=== PATIENT | female | born 1970 | race Caucasian/White ===

== ENCOUNTER 2022-11-06 14:16 | Outpatient (CLI) | payer OTHER, SELFPAY | END 2022-11-06 14:17 | disposition home or self-care (01) | PROVIDERS: PCP Physician Assistant Medical; Referring Provider Physician Assistant Medical; Visit Provider Physician Assistant Medical | DX: Z01.818 Encounter for other preprocedural examination (principal); Z00.00 Encounter for general adult medical examination without abnormal findings; D64.9 Anemia, unspecified; E07.9 Disorder of thyroid, unspecified | CPT/HCPCS: 84443 ==

== ENCOUNTER 2022-11-15 06:37 | Day surgery (SDC) | payer OTHER, SELFPAY ==
[2022-11-15] MEDS: LACTATED RINGERS 1000 ML 1,000 ML 100 ML IV (06:45)
[2022-11-15 07:08] VITALS: BMI 20.9
[2022-11-15 07:12] LABS: Ur HCG Qualitative* Negative (Negative)
[2022-11-15 07:26] VITALS: BP 136/78; PULSE 55; RESP 16; TEMP 36.7; O2SAT 100
[2022-11-15] MEDS: SODIUM CHLORIDE 0.9 % (FLUSH) 10 ML SYRINGE IVF (07:27)
[2022-11-15 07:37] VITALS: BP 141/85; PULSE 60; RESP 16; O2SAT 100
[2022-11-15] MEDS: MIDAZOLAM HCL 1 MG/ML inj IVP (07:38)
[2022-11-15] MEDS: fentaNYL 100 MCG/2 ML inj IVP (07:38)
--- NOTE | 2022-11-15 07:38 | SUR.PREOP ---
TIME?OUT:?0737 PT/RN/MDA?VERIFICATION?OF?SURGICAL?SITE,?PROCEDURE,?AND?CONSENT OBTAINED?PRIOR?TO?INVASIVE?PROCEDURE.
[2022-11-15 07:42] VITALS: BP 108/58; PULSE 63; RESP 16; O2SAT 100
--- NOTE | 2022-11-15 08:00 | CRLHL7_ITS ---
For Patients: As a result of the Cures Act, medical imaging exams and procedure reports are released immediately into your electronic medical record. You may view this report before your referring provider. If you have questions, please contact your health care provider. Indication: RIGHT WRIST ORIF Technique: Three fluoroscopic images of the right wrist. Fluoroscopic time 53.5 seconds. IMPRESSION: Fluoroscopic guided open reduction internal fixation distal radial fracture. Dictated by Edmund Santamaria MD @ 11/15/2022 2:00:57 PM (Electronically Signed)
--- NOTE | 2022-11-15 08:02 | P.NB_ITS ---
Nerve Block Nerve Block Time Seen by Provider: 07:40 Date Seen: 11/15/22 Type of block requested by surgeon for post-operative analgesia: axillary Side: right Time out performed: Yes Verification of patient name: Yes Verification of date of : Yes Site marking: site marked Name of person performing procedure: Pavan Continuous monitoring Was continuous monitoring of O2 sat, B/P, cardiac nurse specialist, recorded every 15 minutes?: Yes Procedure Checklist: sterile prep, needles and gloves Ultrasound guided. Images saved: Yes Medications given in 5ml increments after negative aspiration: Ropivicaine %: 0.5 mL: 30 Needle gauge: 22 Decadron (mg): 10 Patient tolerated procedure well: Yes Additional comments: Needle noted adjacent to nerve Block Charges Block Charge (with Pro Fee): Brachial Plexus Use of Ultrasound Machine for Block: Yes- US Guidance/pain block
--- NOTE | 2022-11-15 08:02 | W.ANESCHARGE ---
Anesthesia Charges Start Date/Time Anesthesia Start Date: 11/15/22 Anesthesia Start Time: 08:16 Stop Date/Time Anesthesia Stop Date: 11/15/22 Anesthesia Stop Time: 10:15
[2022-11-15] MEDS: CEFAZOLIN 1 GM inj IVP (08:22)
--- NOTE | 2022-11-15 10:01 | P.ORPRC_ITS ---
Procedure Note Date of procedure: 11/15/22 Procedure: PREOPERATIVE DIAGNOSES:? 1.? Right distal radius fracture 2 fragment extra-articular fracture POSTOPERATIVE DIAGNOSES:? 1.? Right distal radius fracture 2 fragment extra-articular fracture NAME OF OPERATION:? 1.? Right distal radius open reduction with internal fixation of extra-articular fracture, 2 fragments SURGEON: ? García Rivera MD [id number]/M60 TANK DRIVER:? Aarti Castillo PA-C - Of note, an physician assistant was critical for this case to aide in patient positioning, limb manipulation, tissue retraction, closure, and splinting. ANESTHESIA:? Axillary nerve block with MAC ? IMPLANTS:? [employer] DVR Crosslock distal radius plate with 2.7 mm locking screws and 2.7 mm nonlocking screws. TOURNIQUET:? 63 minutes at 250 mm Hg. ESTIMATED BLOOD LOSS:? 5 mL INDICATIONS: The patient is a pleasant, 52-year-old female who sustained a right wrist injury after a fall.? X-rays revealed a displaced, extra-articular distal radius fracture that was shortened and dorsally angulated.? Given these findings, surgery was recommended to stablize the fracture and improved fracture alignment.? FINDINGS: ? Closed, shortened, dorsally angulated extra-articular distal radius fracture. PROCEDURE: Following a thorough discussion of risks, benefits, and alternatives, consent was obtained and the operative extremity was marked.? An axillary nerve block was performed by anesthesia staff. The patient was brought to the operating room and placed supine on the operating table.? Induction of anesthesia was achieved.? Appropriate time out was performed identifying proper patient, site and procedure.? IV Ancef was administered within 1 hour of incision preoperatively for prophylaxis. The right upper extremity was prepped and draped in the appropriate sterile fashion using ChloraPrep prep. The limb was exsanguinated and the tourniquet inflated.? A longitudinal incision was made overlying the FCR tendon.? Sharp incision through skin and subcutaneous tissue allowed identification of the FCR tendon.? The superficial sheath was sharply divided, the tendon retracted ulnar ly, and the deep fascial sheath also released.? The FPL was retracted ulnarly and the pronator quadratus was sharply released from the radial border of the radius and subperiosteally elevated.? The fracture was encountered and cleared of interposed periosteum / fracture hematoma.? A reduction was performed and then a K-wire was inserted in a retrograde fashion percutaneous into the radial styloid across the fracture site to hold reduction. The appropriate plate selected.? Plate was held provisionally with K-wires, and then was fixed distally with 2.7 mm locking screws.? Fluoroscopic imaging was utilized to confirm correct placement of the plate and screws, and screws and pegs were confirmed to be in subchondral position.? After fixing the plate distally it was used as a reduction aid and then fixed proximally through the oblong hole using a 2.7 mm nonlocking screw.? Additional proximal holes were then filled with 2.7 mm locking and nonlocking screws. Final fluoroscopic images confirmed near anatomic reduction of the fracture and good placement of the plate, screws, and pegs.? At this stage, the wound was thoroughly irrigated with normal saline.? Closure performed with 3-0 Vicryl for the pronator quadratus, followed by deflation of the tourniquet.? All major bleeding points were cauterized.? Closure was then completed with? 3-0 Vicryl for the subcutaneous, and 4-0 stratafix for subcuticular closure. Dressings were applied along with a volar splint.? The patient was awoken from anesthesia and transferred to PACU in stable condition. PLAN: ? 1.? Elevate operative extremity. ? 2.? Ice and acetominphen PRN. ? 3.? Oxycodone for breakthrough pain as needed.? ? 4.? Follow up with an orthopaedic clinic in 10-14 days for wound check and splint removal. Anesthesia: MAC Condition: stable Disposition: PACU
--- NOTE | 2022-11-15 10:16 | W.ANESCHARGE ---
Anesthesia Charges Start Date/Time Anesthesia Start Date: 11/15/22 Anesthesia Start Time: 08:16 Stop Date/Time Anesthesia Stop Date: 11/15/22 Anesthesia Stop Time: 10:15
[2022-11-15 10:21] VITALS: BP 149/87; PULSE 48; RESP 16; TEMP 36.1; O2SAT 98
[2022-11-15 10:30] VITALS: BP 144/88; PULSE 55; RESP 16; O2SAT 98
[2022-11-15 10:45] VITALS: BP 139/77; PULSE 59; RESP 16; O2SAT 98
== END 2022-11-15 11:04 | disposition home or self-care (01) ==
PROVIDERS: Visit Provider Orthopaedic Surgery
PROC: (CPT 25575; principal; 2022-11-15 08:00)
DX: S52.551A Other extraarticular fracture of lower end of right radius, initial encounter for closed fracture (principal); G89.18 Other acute postprocedural pain
CPT/HCPCS: 25607; 01830; 64415; 73110; 76942; 81025; A4580; C1713; J0690; J1100; J2250; J2405; J2704; J2795; J3010; J7120

== ENCOUNTER 2023-02-05 14:26 | Outpatient (CLI) | payer OTHER, SELFPAY ==
--- NOTE | 2023-02-05 14:40 | CRLHL7_ITS ---
For Patients: As a result of the Century Cures Act, medical imaging exams and procedure reports are released immediately into your electronic medical record. You may view this report before your referring provider. If you have questions, please contact your health care provider. BILATERAL SCREENING MAMMOGRAM WITH COMPUTER-AIDED DETECTION TECHNIQUE: CC and MLO views were obtained. These mammographic images have been obtained using full-field digital technique. These mammographic images were interpreted with the benefit of computer-aided detection. COMPARISON FILM: No comparison available. Previous 10 plus years. Re-establish baseline. FINDINGS: There are scattered areas of fibroglandular density IMPRESSION: There is no radiographic evidence for malignancy. ASSESSMENT: BI-RADS Category 1: Negative RECOMMENDATION: Routine screening mammogram in 1 year. A lay language report of this examination will be provided to the patient. Edmund Santamaria M.D. Diagnostic Radiologist Advisor [email or web address] PATEL/Dictated by: Edmund Santamaria MD @ 02/06/2023 8:26:00 AM (Electronically Signed)
== END 2023-02-05 14:27 | disposition home or self-care (01) ==
LOC: MAMMO 14:28
PROVIDERS: PCP Physician Assistant Medical; Visit Provider Physician Assistant Medical
DX: Z12.31 Encounter for screening mammogram for malignant neoplasm of breast (principal)
CPT/HCPCS: 77067